=== PATIENT | female | born 1995 | race Caucasian/White ===

== ENCOUNTER 2018-08-16 06:35 | Emergency (ER) | payer SELFPAY ==
[~2018-08-16] VITALS: Ht 165.1 cm; Wt 72.6 kg
[2018-08-16 07:00] LABS: AMPHETAMINE/METHAMPHETAMINE POS (NEG); BARBITURATES NEG (NEG); BENZODIAZEPINES NEG (NEG); CANNABINOIDS POS (NEG); COCAINE NEG (NEG); METHADONE NEG (NEG); OPIATES NEG (NEG); PHENCYCLIDINE NEG (NEG)
[2018-08-16 07:08] LABS: BILIRUBIN,URINE SMALL (NEG); CLARITY,URINE CLEAR; COLOR,URINE YELLOW; NITRITE,URINE NEGATIVE (NEG); PH,URINE 6.5; PROTEIN,URINE NEGATIVE (NEG-TRACE)
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
[2018-08-16 07:20] LABS: SQUAMOUS EPITHELIAL CELL,UR MOD /LPF
[2018-08-16 07:21] LABS: BACTERIA,URINE FEW /HPF (0-FEW); RBC,URINE 0 /HPF (0-2)
[2018-08-16 07:55] LABS: BASO % 0 % (0-3); EOS % 0 % (0-3); HEMATOCRIT 41.3 % (36.0-47.0); LYMPH # 1.5 x10^3/uL (1.0-4.8); LYMPH % 11 % (24-48); MEAN CORPUSCULAR HEMOGLOBIN 32 pg (25-35); MEAN CORPUSCULAR HGB CONC 34 g/dL (31-37); MEAN CORPUSCULAR VOLUME 95 fL (79-100); MONO # 0.6 x10^3/uL (0.0-1.1); MONO % 5 % (0-9); NEUT # 11.1 x10^3uL (1.8-7.7); NEUT % 84 % (31-73); PLATELET COUNT 392 x10^3/uL (140-400); RED BLOOD COUNT 4.34 x10^6/uL (3.50-5.40); RED CELL DISTRIBUTION WIDTH 12.1 % (11.5-14.5); WHITE BLOOD COUNT 13.3 x10^3/uL (4.0-11.0)
[2018-08-16 08:09] LABS: CALCIUM 9.5 mg/dL (8.5-10.1); CREATININE 0.8 mg/dL (0.6-1.0); GFR 87.4; POTASSIUM 3.8 mmol/L (3.5-5.1)
[2018-08-16 08:10] LABS: ACETAMIN < 2 mcg/ml (10-30); ETHANOL < 10 mg/dL (0-10); SALIC < 2.8 mg/dL (2.8-20.0)
[2018-08-16 08:17] LABS: ALBUMIN 4.5 g/dL (3.4-5.0); ALBUMIN/GLOBULIN RATIO 1.2 (1.0-1.7); TOTAL BILIRUBIN 0.6 mg/dL (0.2-1.0); TOTAL PROTEIN 8.4 g/dL (6.4-8.2)
[2018-08-16 08:21] LABS: FREE T4 1.17 ng/dL (0.76-1.46); THYROID STIM HORMONE (TSH) 1.711 uIU/mL (0.358-3.74)
[2018-08-16] MEDS ORDERED: LORazepam 1 MG TABLET PO ONE (09:30)
[2018-08-16 12:05] VITALS: BP 140/83
== END 2018-08-16 11:45 | disposition home or self-care (01) ==
LOC: ER 06:35
DX: F41.9 Anxiety disorder, unspecified (principal); F23 Brief psychotic disorder; F19.10 Other psychoactive substance abuse, uncomplicated; F32.9 Major depressive disorder, single episode, unspecified; Z98.890 Other specified postprocedural states; Z90.89 Acquired absence of other organs
CPT/HCPCS: 36415; 80053; 80307; 80329; 81001; 81025; 84439; 84443; 85025; 87086; 99284; G0480; G6039